=== PATIENT | female | born 1995 | race Two or more races ===

== ENCOUNTER 2019-02-20 11:11 | Emergency (ER) | payer OTHER ==
[~2019-02-20] VITALS: Ht 160 cm; Wt 71.7 kg
[2019-02-20] MEDS ORDERED: DICLOFENAC SODI75 MG PO (12:54)
== END 2019-02-20 13:11 | disposition home or self-care (01) ==
LOC: ER 11:11
DX: M94.0 Chondrocostal junction syndrome [Tietze] (principal)